=== PATIENT | female | born 1970 | race Caucasian/White ===

== ENCOUNTER 2017-04-29 20:46 | Emergency (ER) | payer SELFPAY ==
[~2017-04-29 20:46] MED LIST: Lorazepam 0.5 MG TAB ONE; Mag-Al Plus 1200 MG/1200 MG/120 MG/30 ML UDCUP ONE; Nicotine 14 MG PATCH ONE; Oxymetazoline HCl 0.05% ( 15 ML ) ONE
[2017-04-30] MEDS ORDERED: FLUoxetine HCl 20 MG CAP PO SCH (09:00)
[2017-04-30] MEDS ORDERED: Lithium Carbonate 150 MG CAP PO SCH ×2 (09:00→21:00)
[2017-04-30] MEDS ORDERED: Haloperidol 5 MG TAB PO SCH ×2 (09:00)
[2017-04-30] MEDS ORDERED: Nicotine 14 MG PATCH TOP SCH (12:45)
[2017-04-30] MEDS ORDERED: diphenhydrAMINE HCl 25 MG CAP ONE (18:10)
[2017-04-30] MEDS ORDERED: Prazosin HCl 1 MG CAP PO SCH (21:00)
[2017-04-30] MEDS ORDERED: Acetaminophen 325 MG TAB ONE (21:50)
[2017-05-01] MEDS ORDERED: Acetaminophen 325 MG TAB ONE ×2 (06:45→20:06)
[2017-05-01] MEDS ORDERED: Lithium Carbonate 150 MG CAP PO SCH ×2 (09:00→21:00)
[2017-05-01] MEDS ORDERED: FLUoxetine HCl 20 MG CAP PO SCH (09:00)
[2017-05-01] MEDS ORDERED: Haloperidol 5 MG TAB PO SCH (09:00)
[2017-05-01] MEDS ORDERED: Nicotine 14 MG PATCH TOP SCH (13:00)
[2017-05-01] MEDS ORDERED: Oxymetazoline HCl 0.05% ( 15 ML ) ONE (13:35)
[2017-05-01] MEDS ORDERED: guaiFENesin ER 600 MG TAB PO SCH (16:45)
[2017-05-01] MEDS ORDERED: Prazosin HCl 1 MG CAP PO SCH (21:00)
== END 2017-05-05 18:25 ==
LOC: ERS 20:46
DX: R45.851 Suicidal ideations (principal); I10 Essential (primary) hypertension; G43.909 Migraine, unspecified, not intractable, without status migrainosus; E78.5 Hyperlipidemia, unspecified; F17.210 Nicotine dependence, cigarettes, uncomplicated; Z79.899 Other long term (current) drug therapy
CPT/HCPCS: 87081; 87430; 99285

== ENCOUNTER 2017-05-21 12:32 | Emergency (ER) | payer SELFPAY | END 2017-05-21 14:02 | disposition left against medical advice (07) | LOC: ERS 12:32 | DX: Z53.21 Procedure and treatment not carried out due to patient leaving prior to being seen by health care provider (principal) ==

== ENCOUNTER 2019-01-01 11:05 | Emergency (ER) | payer SELFPAY ==
[2019-01-01] MEDS ORDERED: Mag-Al 1200 mg/1200 mg/30 ML UDCUP ONE (13:11)
[2019-01-01] MEDS ORDERED: Lidocaine Viscous Sol 2% 15 ml UD Cup ONE (13:11)
[2019-01-01] MEDS ORDERED: Lorazepam 1 MG TAB ONE (16:44)
[2019-01-01] MEDS ORDERED: Haloperidol 5 MG TAB PO SCH (21:00)
[2019-01-02] MEDS ORDERED: FLUoxetine HCl 20 MG CAP PO SCH (07:15)
== END 2019-01-01 13:57 | disposition home or self-care (01) ==
LOC: ERS 11:05
DX: F32.9 Major depressive disorder, single episode, unspecified (principal); G43.909 Migraine, unspecified, not intractable, without status migrainosus; F25.9 Schizoaffective disorder, unspecified; F17.210 Nicotine dependence, cigarettes, uncomplicated; Z79.899 Other long term (current) drug therapy
CPT/HCPCS: 99285